=== PATIENT | female | born 1975 | race African-American/Black ===

== ENCOUNTER 2016-12-25 12:48 | Emergency (ER) | payer SELFPAY ==
[~2016-12-25] VITALS: Ht 170.2 cm; Wt 131.5 kg
[~2016-12-25 12:48] MED LIST: DICL75 PO; ROBA750T3 PO
--- NOTE | 2016-12-25 12:56 | PD ---
Physical Exam Date Seen by Provider: Dec 25, 2016 Time Seen by Provider: 12:54 Narrative 41 year old female presents to the emergency department for evaluation of cough , congestion. hoarse voice for 3 days. No fevers. Patient is awaiting bed placement. [facility] Supervised Visit with DES: Leslye Aleman Dec 25, 2016 12:56
[2016-12-25 12:57] VITALS: BP 136/81; PULSE 64; RESP 16; TEMP 98.6; O2SAT 100
[2016-12-25] MEDS ORDERED: PHEN1LIQ60 (13:02)
== END 2016-12-25 13:20 | disposition left against medical advice (07) ==
LOC: NEPK 12:48
DX: R05 Cough (principal); Z53.21 Procedure and treatment not carried out due to patient leaving prior to being seen by health care provider
CPT/HCPCS: 99282

== ENCOUNTER 2017-10-20 12:08 | Emergency (ER) | payer OTHER ==
[~2017-10-20] VITALS: Ht 170.2 cm; Wt 129.0 kg
[~2017-10-20 12:08] MED LIST changes: -DICL75 PO; +PHEN1LIQ60; -ROBA750T3 PO
[2017-10-20 12:09] VITALS: BP 156/94; PULSE 69; RESP 18; TEMP 99.1; O2SAT 99
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
[2017-10-20] MEDS ORDERED: ORPHENADRINE INJ 60 MG/2 ML AMP IM ONE (15:30)
[2017-10-20] MEDS ORDERED: CYCL10TA PO (15:51)
== END 2017-10-20 16:10 | disposition home or self-care (01) ==
LOC: NEPD 12:08
DX: M54.5 Low back pain (principal); M25.512 Pain in left shoulder; V89.2XXA Person injured in unspecified motor-vehicle accident, traffic, initial encounter
CPT/HCPCS: 70450; 72125; 72131; 84703; 96372; 99285; J2360

== ENCOUNTER 2018-02-05 20:36 | Emergency (ER) | payer SELFPAY ==
[~2018-02-05 20:36] MED LIST changes: +CYCL10TA PO
[2018-02-05 20:45] VITALS: BP 142/73; PULSE 88; RESP 20; TEMP 100.2; O2SAT 97
[2018-02-05 21:01] VITALS: TEMP 99.7
[2018-02-05] MEDS ORDERED: TRIA1SPR5 EACH NARE (21:18)
[2018-02-05] MEDS ORDERED: ALBU6.7H INH (21:18)
[2018-02-05] MEDS ORDERED: AZIT250T3 PO (21:18)
[2018-02-05] MEDS ORDERED: OCEA0.653 EACH NARE (21:18)
--- NOTE | 2018-02-05 21:19 | PD ---
HPI Chief Complaint: Cold / Flu Symptoms Time Seen by Provider: 20:55 Travel History International Travel<30 days: No Contact w/Intl Traveler<30days: No Traveled to known affect area: No History of Present Illness HPI The patient's 42 years old. She arrives with complaint of fever body aches and pains, green sputum production with coughing. Rhinorrhea is reported. Benadryl has not been helping. Duration of symptoms is 2 weeks. [place] juice was not helpful. Occasionally a headache with coughing is reported. Patient reports difficulty working because of symptoms. Denies asthma. No history diabetes. PFSH Past Medical History Medical History: Denies Significant Hx Hx Anticoagulant Therapy: No Heart Rhythm Problems: No Cardiovascular Problems: No Chemotherapy: No Congestive Heart Failure: No Cerebrovascular Accident: No Diabetes: No Diminished Hearing: No Hypertension: No Respiratory: No Immunizations Current: Yes ?: Not : 16 Para: 3 Miscarriage: 4 : 9 Tubal Ligation: Yes Past Surgical History Hysterectomy: No Other Surgery: Yes (left HAND SX) Social History Alcohol Use: No Tobacco Use: No Substance Use: No Allergies-Medications (Allergen,Severity, Reaction): Coded Allergies: No Known Allergies (Verified Adverse Reaction, Unknown, 02/05/18) Reported Meds & Prescriptions Reported Meds & Active Scripts Active Proventil Hfa 6.7 GM Inh (Albuterol Sulfate) 90 Mcg/Act Aer 2 Puff INH Q6H PRN 14 Days Azithromycin 250 Mg Tab 250 Mg PO DIRECTED Take 2 tabs (500 mg) on day 1 then 1 tab daily x 4 days. Branch Nasal [place] (Sodium Chloride) 0.65% [place] 2 [place] EACH NARE DIRECTED PRN Nasacort Allergy 24Hr Nasal [place] (Triamcinolone Acetonide Nasal [place]) 55 Mcg Spr 110 Mcg EACH NARE DAILY 7 Days Review of Systems Except as stated in HPI: all other systems reviewed are Neg General / Constitutional: Positive: Fever, Chills HENT: Positive: Sore Throat, Rhinitis, Rhinorrhea Physical Exam Narrative GENERAL: 42-year-old female pleasant well-nourished well-developed Vital Signs Date Time Temp Pulse Resp B/P (MAP) Pulse Ox O2 Delivery O2 Flow Rate FiO2 02/05/18 21:01 99.7 02/05/18 20:54 20 02/05/18 20:45 100.2 88 20 142/73 (96) 97 SKIN: Warm and dry. HEAD: Atraumatic. Normocephalic. EYES: Pupils equal and round. No scleral icterus. No injection or drainage. ENT: No nasal bleeding or discharge. Mucous membranes pink and moist. NECK: Trachea midline. No JVD. CARDIOVASCULAR: Regular rate and rhythm. RESPIRATORY: No accessory muscle use. Clear to auscultation. Breath sounds equal bilaterally. GASTROINTESTINAL: Abdomen soft, non-tender, nondistended. Hepatic and splenic margins not palpable. MUSCULOSKELETAL: Extremities without clubbing, cyanosis, or edema. No obvious deformities. NEUROLOGICAL: Awake and alert. No obvious cranial nerve deficits. Motor grossly within normal limits. Five out of 5 muscle strength in the arms and legs. Normal speech. PSYCHIATRIC: Appropriate mood and affect; insight and judgment normal. Data Data Last Documented VS Vital Signs Date Time Temp Pulse Resp B/P (MAP) Pulse Ox O2 Delivery O2 Flow Rate FiO2 02/05/18 21:01 99.7 02/05/18 20:54 20 02/05/18 20:45 88 142/73 (96) 97 Orders Orders Albuterol-Ipratropium Neb (Duoneb Neb) (02/05/18 21:30) Dexamethasone Inj (Decadron Inj) (02/05/18 21:30) MDM Medical Decision Making Medical Screen Exam Complete: Yes Emergency Medical Condition: Yes Medical Record Reviewed: Yes Differential Diagnosis Pneumonia, bronchitis, laryngitis, viral syndrome Narrative Course The patient has a fairly significant upper respiratory tract infection. Atypical pneumonia would be the worse case scenario. In any case I believe we can manage his symptoms aggressively with azithromycin, albuterol inhaler Decadron shot and Zyrtec coupled with nasal saline irrigation and Nasalcrom. Diagnosis Primary Impression: Bronchitis Additional Impression: Postnasal drip Referrals: Primary Care Physician call for appointment Med/Other Pt SpecificInfo: Prescription(s) given Scripts Albuterol 6.7 GM Inh (Proventil Hfa 6.7 GM Inh) 90 Mcg/Act Aer 2 PUFF INH Q6H Y for SHORTNESS OF BREATH for 14 Days, #1 INHALER 0 Refills Prov: Darrell Cook MD 02/05/18 Azithromycin (Azithromycin) 250 Mg Tab 250 MG PO DIRECTED for Infection, #6 TAB 0 Refills Take 2 tabs (500 mg) on day 1 then 1 tab daily x 4 days. Prov: Darrell Cook MD 02/05/18 Saline Nasal (Branch Nasal [place]) 0.65% [place] 2 SPRAY EACH NARE DIRECTED Y for NASAL CONGESTION, #1 BOTTLE 0 Refills Prov: Darrell Cook MD 02/05/18 Triamcinolone Acetonide Nasal [place] (Nasacort Allergy 24Hr Nasal [place]) 55 Mcg Spr 110 MCG EACH NARE DAILY for Allergy Management for 7 Days, BOTTLE 0 Refills Prov: Darrell Cook MD 02/05/18 Disposition: 01 DISCHARGE HOME Condition: Stable Darrell Cook MD February 05, 2018 21:19
[2018-02-05] MEDS ORDERED: DEXAMETHASONE SOD PHOS 4 MG/ML VIAL IM ONE (21:30)
[2018-02-05 22:02] VITALS: O2SAT 96
[2018-02-05] MEDS: RESP: ALBUTEROL 2.5 MG/IPRATROPIUM 0.5 MG NEB (SCH) INH (22:02)
== END 2018-02-05 22:31 | disposition home or self-care (01) ==
LOC: NEPD 20:36
DX: J40 Bronchitis, not specified as acute or chronic (principal); R09.82 Postnasal drip; R50.9 Fever, unspecified; M79.1 Myalgia
CPT/HCPCS: 94640; 94664; 96372; 99283; J1100

== ENCOUNTER 2018-02-09 23:04 | Emergency (ER) | payer SELFPAY ==
[~2018-02-09] VITALS: Ht 170.2 cm; Wt 127.0 kg
[~2018-02-09 23:04] MED LIST changes: +ALBU6.7H INH; +AZIT250T3 PO; -CYCL10TA PO; +OCEA0.653 EACH NARE; -PHEN1LIQ60; +TRIA1SPR5 EACH NARE
[2018-02-09 23:06] VITALS: BP 152/91; PULSE 82; RESP 16; TEMP 98.6; O2SAT 98
--- NOTE | 2018-02-10 00:46 | PD ---
HPI Chief Complaint: Medical Clearance Time Seen by Provider: 00:05 Travel History International Travel<30 days: No Contact w/Intl Traveler<30days: No Traveled to known affect area: No History of Present Illness HPI pt was in our Er for Bronchitis and now needs medical clearance note for work return. Patient had been given an IM Decadron injection and Z-Joseluis a now she feels her left ear is tender and congested and painful localized to the left ear she says her cough and wheezing has improved but her ear now hurts locally PFSH Past Medical History Hx Anticoagulant Therapy: No Heart Rhythm Problems: No Cardiovascular Problems: No Chemotherapy: No Congestive Heart Failure: No Cerebrovascular Accident: No Diabetes: No Diminished Hearing: No Hypertension: No Respiratory: No Immunizations Current: Yes : 16 Para: 3 Miscarriage: 4 : 9 Tubal Ligation: Yes Past Surgical History Hysterectomy: No Other Surgery: Yes (left HAND SX) Social History Alcohol Use: No Tobacco Use: No Substance Use: No Allergies-Medications (Allergen,Severity, Reaction): Coded Allergies: No Known Allergies (Verified Adverse Reaction, Unknown, 02/09/18) Reported Meds & Prescriptions Reported Meds & Active Scripts Active Ciprodex Otic Drops (Ciprofloxacin-Dexamethasone Otic Drops) 0.3-0.1% Susp 4 Drop LEFT EAR BID Pseudoephedrine (Pseudoephedrine HCl) 60 Mg Tab 60 Mg PO Q6H PRN Ibuprofen 600 Mg Tab 600 Mg PO Q6H PRN Proventil Hfa 6.7 GM Inh (Albuterol Sulfate) 90 Mcg/Act Aer 2 Puff INH Q6H PRN 14 Days Azithromycin 250 Mg Tab 250 Mg PO DIRECTED Take 2 tabs (500 mg) on day 1 then 1 tab daily x 4 days. [place] Nasal [place] (Sodium Chloride) 0.65% [place] 2 [place] EACH NARE DIRECTED PRN Nasacort Allergy 24Hr Nasal [place] (Triamcinolone Acetonide Nasal [place]) 55 Mcg Spr 110 Mcg EACH NARE DAILY 7 Days Physical Exam Narrative GENERAL: non toxic appearance no resp distress SKIN: normal HEAD: Atraumatic. Normocephalic. EYES: Pupils equal and round. No scleral icterus. No injection or drainage. ENT: Right External canal red slightly swollen TM red ( pt already on Azithromycin ) . NECK: Trachea midline. No JVD. CARDIOVASCULAR: Regular rate and rhythm. RESPIRATORY: minimal expiratory wheeze Breath sounds equal bilaterally. GASTROINTESTINAL: Abdomen soft, non-tender, nondistended. Hepatic and splenic margins not palpable. MUSCULOSKELETAL: Extremities without clubbing, cyanosis, or edema. No obvious deformities. NEUROLOGICAL: Awake and alert. No obvious cranial nerve deficits. Motor grossly within normal limits. Five out of 5 muscle strength in the arms and legs. Normal speech. PSYCHIATRIC: Appropriate mood and affect; insight and judgment normal. Data Data Last Documented VS Orders Orders Ed Discharge Order (02/10/18 00:46) MDM Medical Decision Making Medical Screen Exam Complete: Yes Emergency Medical Condition: Yes Differential Diagnosis bronchitis improving vs Otitis Media externa viral otitis other medical clearance request. Narrative Course Pt given drops for external ear swelling and medically cleared for work return in 2 days Diagnosis Primary Impression: Well adult exam Additional Impression: Otitis Patient Instructions: General Instructions Departure Forms: Work Release, Enter return to work date: February 10, 2018 Tests/Procedures Scripts Ciprofloxacin-Dexamethasone Otic Drops (Ciprodex Otic Drops) 0.3-0.1% Susp 4 DROP LEFT EAR BID for Infection, #1 BOTTLE 0 Refills Prov: Hermann Orozco MD 02/10/18 Pseudoephedrine (Pseudoephedrine) 60 Mg Tab 60 MG PO Q6H Y for NASAL CONGESTION, #20 TAB 0 Refills Prov: Hermann Orozco MD 02/10/18 Ibuprofen (Ibuprofen) 600 Mg Tab 600 MG PO Q6H Y for Pain/Inflammation, #40 TAB 0 Refills Prov: Hermann Orozco MD 02/10/18 Disposition: 01 DISCHARGE HOME Condition: Good Hermann Orozco MD February 10, 2018 00:46
[2018-02-10] MEDS ORDERED: IBUP-232 PO (01:02)
[2018-02-10] MEDS ORDERED: SUDO60TA2 PO (01:02)
[2018-02-10] MEDS ORDERED: CIPR0.3S LEFT EAR (01:04)
== END 2018-02-10 01:06 | disposition home or self-care (01) ==
LOC: NEPE 23:04
DX: H66.90 Otitis media, unspecified, unspecified ear (principal)
CPT/HCPCS: 99281